=== PATIENT | female | born 1965 | race Caucasian/White ===

== ENCOUNTER 2016-06-29 08:21 | Emergency (ER) | payer OTHER ==
[~2016-06-29] VITALS: Ht 160 cm; Wt 88.6 kg
[~2016-06-29 08:21] MED LIST: ALBUTHFA PO; NAPR550T PO; TUMS PO
[2016-06-29 08:26] VITALS: BP 163/93; PULSE 59; RESP 16; O2SAT 98
--- NOTE | 2016-06-29 08:32 | ED.REPORT ---
HPI-Abd Pain F 40 and Over Date of Service Jun 29, 2016 ED Provider: Devonte Cook DO A 51 year old female with no pertinent medical history presents to the ED complaining of abdominal pain. The pain began when she woke this morning and has worsened since to a level of 9/10. It is concentrated in the RLQ and accompanied by nausea, vomiting, and pain passing a bowel movement. She also admits to mild subjective fever but denies saddle numbness or dysuria. The pt takes no pain medications at home. Nursing Notes Stated Complaint: STOMACH PAIN,VOMITTING Chief Complaint: Female Abdominal Pain Nursing Notes Reviewed: Yes Allergies: Coded Allergies: nortriptyline (Verified Allergy, Unknown, [facility], 07/22/15) Scheduled Albuterol-Expunged Drug, Do Not Renew! (Albuterol-Expunged Drug, Do Not Renew!) 90 Mcg/Puff Hfa.aer.ad 2 PUFFS PO PRN Calcium Carbonate-Expunged Drug, Do Not Renew (Tums Chewable-Expunged Drug, Do Not Renew!) 500 Mg Tablet 500-1,500 MG PO HS Naproxen Sodium (Anaprox DS) 550 Mg Tablet 550 MG PO Q12HP Scheduled PRN Hydrocodone-Acetaminophen 5-325 mg (Hydrocodone-Acetaminophen 5-325 mg) 1 Each Tablet 1 TABLET PO Q4H PRN PRN For Pain Naproxen (Naproxen) 500 Mg Tab 500 MG PO BID PRN PRN For Pain General Time Seen by MD: 08:32 Chief Complaint Abdominal pain Hx Obtained From: Patient Arrived By: Walk-in Sudden in Onset?: Yes Onset Occurred: 1 - 4 hours ago Symptom Duration: Since onset Progression since Onset: Gradually worsening Recent Healthcare: No recent doctor visit, No recent hospitalization Similar Sx Previous: No Past Medical History Past Medical History denies Past Surgical History denies Family History noncontributory Smoking History Unknown if Ever Smoker Social History Alcohol Use: Denies alcohol use Drug Use: Denies drug use Other Social History: Local resident Ambulatory Status Independent Review of Systems denies saddle numbness Constitutional: Reports: Fever Respiratory: Denies: Non-productive cough, Shortness of breath Cardiovascular: Denies: Chest pain GI: Reports: Abdominal pain (RLQ), Constipation (pain with passing bowel movements), Nausea, Vomiting Female: Denies: Dysuria Musculoskeletal: Denies: Back pain, Neck pain Complete sys rev & neg: except as marked. Physical Exam Vital Signs Vital Signs (First) Date Time Temp Pulse Resp B/P Pulse Ox O2 Delivery O2 Flow Rate FiO2 06/29/16 08:26 36.2 59 16 163/93 98 Room Air Initial VS: Reviewed General/Constitutional: Awake, Alert Behavior: Positive: Tearful Respiratory / Chest: Atraumatic, Breath sounds NL, Breath sounds = bilat, No respiratory distress Cardiovascular: Heart rate NL, Regular rhythm, Heart sounds NL Abdomen: Atraumatic, Soft RLQ tenderness with guarding Back: Atraumatic, Full range of motion Head / Eyes: Atraumatic, Normocephalic, PERRL, EOMI ENT: Atraumatic, Airway patent, Mucous membranes moist Skin: Atraumatic, Color NL, No rash, Warm, Dry Neurologic: Oriented X3, Speech NL, No motor deficits, No sensory deficits Neck: Atraumatic, Supple, Full range of motion Upper Extremity / MS: Atraumatic, Full range of motion Lower Extremity / Pelvis / MS: Atraumatic, Full range of motion Psychiatric: Affect NL, Mood NL Interpretation & Diagnostics Interpretation & Diagnostics: CT Abdomen: IMPRESSION: 1. Punctate calcification at the right ureterovesicular junction with mild to moderate right hydronephrosis and hydroureter. The above finding was discussed with Dr. Devonte Cook on 06/29/16 at 10:40am. Dictated by: Marce Branham M.D. on 06/29/2016 at 10:41 Approved by: Marce Branham M.D. on 06/29/2016 at 10:41 Lab Results Interpretation Result Diagram: 06/29/16 0920 06/29/16 0920 Test 06/29/16 09:20 06/29/16 10:32 White Blood Count 5.8th/mm3 (3.8-10.1) Red Blood Count 4.80mil/mm3 (3.90-5.20) Hemoglobin 14.6g/dL (12.0-15.6) Hematocrit 43.2% (35.0-46.0) Mean Corpuscular Volume 90.0fL (81-100) Mean Corpuscular Hemoglobin 30.4pg (27.0-35.0) Mean Corpuscular Hemoglobin Concent 33.8% (32.0-37.0) Red Cell Distribution Width 12.6% (12.3-15.4) Platelet Count 317bil/L (150-400) Neutrophils (%) (Auto) 79.2% (40-74) Lymphocytes (%) (Auto) 12.4% (14-46) Monocytes (%) (Auto) 5.5% (4-12) Eosinophils (%) (Auto) 2.2% (0-5) Basophils (%) (Auto) 0.5% (0-3) Sodium Level 140mEq/L (134-144) Potassium Level 3.9mEq/L (3.5-5.2) Chloride Level 103mEq/L (97-108) Carbon Dioxide Level 26mmol/L (18-29) Blood Urea Nitrogen 14mg/dL (6-24) Creatinine 0.77mg/dL (0.57-1.00) Estimat Glomerular Filtration Rate 113mL/min (>59) Glucose Level 94mg/dL (60-99) Calcium Level 9.2mg/dL (8.5-10.1) Magnesium Level 1.9mg/dL (1.6-2.6) Total Bilirubin 0.5mg/dL (0.0-1.2) Aspartate Amino Transf (AST/SGOT) 19U/L (0-50) Alanine Aminotransferase (ALT/SGPT) 11U/L (0-32) Alkaline Phosphatase 56U/L (25-150) Total Protein 7.5g/dL (6.4-8.4) Albumin 4.0g/dL (3.4-5.0) Lipase 24U/L (13-60) Hold Rodríguez Top Tube Received (Received) Hold Urine Received (Received) Re-Eval/Medical Decision Med Decision/Clinical Course Findings consistent with a right-sided kidney stone. Patient is discharged with naproxen and Vicodin. Return precautions given. Source of Hx: Old records Re-Evaluation/Progress : Time of Eval: 11:16 Patient Status: Condition improved Re-Evaluation/Progress Note: Pt rechecked, who is resting comfortably. She is informed of her lab and radiology results, as well as the plan for discharge. The pt understands and agrees with the plan. All questions are addressed at this time. Counseled Regarding: Diagnosis, Lab results, Need for follow-up, When/why to return to ED Discharge & Departure Primary Impression: Right kidney stone Disposition: Home Discharge Condition All VS Reviewed: Yes Condition: Stable Additional Instructions: Thank you for entrusting us with your care today. We hope that you feel better soon! Your CT scan and labs today indicate that you have a right-sided kidney stone. Take Naproxen and Vicodin as prescribed for pain relief. Follow up with your primary care doctor or urologist for further evaluation. Return to the emergency department if you experience any new or worsening symptoms. Referrals: Bridget Petty MD (PCP) Boris Attestation Portions of this note were transcribed by Bobby Reagan I, Dr. Cook personally performed the history, physical exam and medical decision-making; I reviewed and confirmed the accuracy of the information in the transcribed note. Signed by: Boris Martinez, 06/29/16 and 12:21. copies to: Bridget Petty MD, Timothy S DO Jun 29, 2016 08:32 BOBBY REAGAN Jun 29, 2016 08:43
[2016-06-29] MEDS ORDERED: 0.9% Sodium Chloride 1,000 ML IV ONE (08:42)
[2016-06-29] MEDS ORDERED: Ondansetron 2 mg/mL 2 mL Inj IVPUSH PRN (08:45)
[2016-06-29] MEDS ORDERED: HYDROmorphone 0.5 mg/0.5 mL iSecure Syringe IVPUSH PRN (08:45)
[2016-06-29 09:34] LABS: BASOPHILS % (AUTO) 0.5 % (0-3); EOSINOPHILS % (AUTO) 2.2 % (0-5); MONOCYTES % (AUTO) 5.5 % (4-12); Mean Corpuscular Hemoglobin 30.4 pg (27.0-35.0); NEUTROPHILS % (AUTO) 79.2 % (40-74); Platelet Count 317 bil/L (150-400)
[2016-06-29 09:56] LABS: Magnesium 1.9 mg/dL (1.6-2.6)
[2016-06-29 11:09] VITALS: BP 125/62; PULSE 67; O2SAT 99
[2016-06-29] MEDS ORDERED: HYDR-4003 PO (11:28)
[2016-06-29] MEDS ORDERED: NPR500T PO (11:28)
--- NOTE | 2016-06-29 12:08 | DRSVH ---
PROCEDURE: CT ABDOMEN AND PELVIS WITH CONTRAST ([id number]) INDICATIONS: RLQ pain TECHNIQUE: After the administration of intravenous contrast, 5 mm thick sections acquired from the diaphragm to the symphysis. 5 mm coronal and sagittal reformats were acquired. For radiation dose reduction, the following was used: automated exposure control, adjustment of mA and/or kV according to patient siz e. COMPARISON: None. FINDINGS: Image quality: Excellent. ABDOMEN: Lung bases: Lung bases are clear. Heart size is normal. Solid organs: Liver is mildly enlarged steatosis. The spleen is normal in size and enhancement. Gal lbladder is unremarkable. Biliary system is non dilated. Pancreas enhances normally. No adrenal no dules. Kidneys demonstrate normal size and enhancement. There is a minimal to mild appearance of rig ht hydronephrosis and hydroureter. Punctate calcification is noted at the right ureterovesicular junc tion. Peritoneum and bowel: Bowel loops demonstrate normal wall thickness and caliber. No free fluid or a ir. No right lower quadrant inflammatory change. Appendix is unremarkable. Nodes and vessels: No retroperitoneal or mesenteric adenopathy by size criteria. Aorta and inferior vena cava are normal in size. Miscellaneous: No ventral hernias. PELVIS: Genitourinary: Bladder wall thickness is normal. Intrauterine device is present. Miscellaneous: No inguinal hernias or adenopathy. Bones: No suspicious bony lesions. No vertebral body compression fractures. IMPRESSION: 1. Punctate calcification at the right ureterovesicular junction with mild to moderate right hydronep hrosis and hydroureter. The above finding was discussed with Dr. Devonte Cook on 06/29/16 at 10:40am. Dictated by: Marce Branham M.D. on 06/29/2016 at 10:41 Approved by: Marce Branham M.D. on 06/29/2016 at 10:41
[2016-06-29 12:30] VITALS: BP 105/50; PULSE 98; RESP 14; O2SAT 97
== END 2016-06-29 12:47 | disposition home or self-care (01) ==
LOC: SED 08:21
DX: N20.0 Calculus of kidney (principal); Z88.8 Allergy status to other drugs, medicaments and biological substances
CPT/HCPCS: 36415; 74177; 80053; 83690; 83735; 85025; 96361; 96374; 96375; 99285; J1170; J2405; J7030; Q9967